=== PATIENT | male | born 1955 | race American Indian/Alaskan Native ===

== ENCOUNTER 2019-11-22 12:55 | Outpatient (CLI) | payer BC, MEDICARE ==
--- NOTE | 2019-11-22 14:06 | Cat Scan Report ---
CT ABDOMEN AND PELVIS WITHOUT CONTRAST INDICATION: R31.9 HEMATURIA. TECHNIQUE: Axial CT images were obtained through the abdomen and pelvis without IV contrast. All CT scans at [facility] location are performed using CT dose reduction for ALARA by means of automated exposure control. COMPARISON: None available. FINDINGS: LOWER CHEST: Mild bibasilar dependent atelectasis LIVER: No significant abnormality. GALLBLADDER: Several calcified gallstones. BILE DUCTS: No significant abnormality. PANCREAS: No significant abnormality. SPLEEN: No significant abnormality. ADRENALS: No significant abnormality. RIGHT KIDNEY and URETER: 1 cm fat-containing right renal angiomyolipoma axial image 68. LEFT KIDNEY and URETER: No significant abnormality. STOMACH and SMALL BOWEL: No significant abnormality. COLON: No significant abnormality. APPENDIX: No significant abnormality. PERITONEUM: No free fluid. No free air. No fluid collection. LYMPH NODES: No significant adenopathy. AORTA and ARTERIES: No significant abnormality. IVC and VEINS: IVC filter. URINARY BLADDER: No significant abnormality. REPRODUCTIVE ORGANS: No significant abnormality. ADDITIONAL FINDINGS: None. 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 Mild discogenic degenerativ e disease L3-S1. IMPRESSION: 1. Small 1 cm right renal angiomyolipoma. 2. No other renal or bladder mass. 3. No urinary tract calculi or hydronephrosis Signer Name: Jann Thompson MD Signed: 11/22/2019 2:01 PM Workstation Name: [id number]
== END 2019-11-22 12:56 | disposition home or self-care (01) ==
LOC: CT 12:55
PROVIDERS: ATTEND Urology
DX: D18.09 Hemangioma of other sites (principal); K80.20 Calculus of gallbladder without cholecystitis without obstruction; J98.11 Atelectasis; M47.817 Spondylosis without myelopathy or radiculopathy, lumbosacral region
CPT/HCPCS: 74176